=== PATIENT | female | born 1975 | race Caucasian/White ===

== ENCOUNTER 2017-06-08 13:06 | Emergency (ER) | payer SELFPAY ==
[2017-06-08 13:06] VITALS: BMI 31.3
[2017-06-08 13:20] VITALS: TEMP 97.9; O2SAT 100
[2017-06-08 13:21] VITALS: RESP 18
--- NOTE | 2017-06-08 13:52 | ED PDOC ---
Arrival/HPI - General Chief Complaint: Headache Time Seen by Provider: 06/08/17 13:37 Historian: Patient - History of Present Illness Narrative History of Present Illness (Text): 06/08/17 13:47 A 42 year old female, whose past medical history includes intermittent headaches and associated dizziness, presents to the emergency department complaining of dizziness and headaches. Patient reports when standing for about 10 minutes, she begins to experience dizziness as though the room is spinning. Notes also experiencing slight back-side neck pain and bi-temporal head pain. pt states pain is severe and longer lasting, OTC medications are not helping; pt was seen in the hospital 1-2 years ago for similar occurrence; pt states yesterday she felt very nauseous and when she vomited x 2 episodes, she decided to come to ED for further eval; pt denied fever/chills/sweats, no cp/sob/ palpitations, no abd pain, no numbness/tingling; no urinary/bowel changes, no rashes, no vision changes, no LOC, no fall/trauma/sick contact, no travel specialist denied other complaints. No PMD; Clinic patient 06/09/17 07:27 pt is right hand dominate Time/Duration: 24 hours (~ 1 day onset of dizziness/persistent headaches), Other (has had similiar symptoms almost every o) Symptom Onset: Sudden Symptom Course: Unchanged Quality: Tightness Severity Level: Severe Activities at Onset: Rest Context: Standing Past Medical History - Provider Review Nursing Documentation Reviewed: Yes - Travel History Have you recently traveled outside [place] w/in the past 3 mons?: No - Infectious Disease Hx of Infectious Diseases: None - Tetanus Immunization Tetanus Immunization: Unknown - Past Medical History Past Medical History: No Previous - Cardiac Hx Cardiac Disorders: Yes - Pulmonary Hx Respiratory Disorders: No - Neurological Hx Neurological Disorder: Yes Hx Headaches: Yes - HEENT Hx HEENT Disorder: No - Renal Hx Renal Disorder: No - Endocrine/Metabolic Hx Endocrine Disorders: No - Hematological/Oncological Hx Blood Disorders: No - Integumentary Hx Dermatological Disorder: No - Musculoskeletal/Rheumatological Hx Musculoskeletal Disorders: No - Gastrointestinal Hx Gastrointestinal Disorders: No - Genitourinary/Gynecological Hx Genitourinary Disorders: No - Psychiatric Hx Psychophysiologic Disorder: No Hx Substance Use: No - Past Surgical History Past Surgical History: No Previous - Anesthesia Hx Anesthesia: No - Suicidal Assessment Feels Threatened In Home Enviroment: No Family/Social History - Physician Review Nursing Documentation Reviewed: Yes Family/Social History: No Known Family HX (family hx: no persistent headaches; no sudden arrests; no early MT in family members) Smoking Status: Never Smoked Hx Alcohol Use: No Hx Substance Use: No Hx Substance Use Treatment: No Allergies/Home Meds Allergies/Adverse Reactions: Allergies No Known Allergies Allergy (Verified 06/08/17 13:14) Home Medications: Home Meds Medication Instructions Recorded Confirmed Ibuprofen [Motrin Tab] 600 mg PO Q6 06/08/17 06/08/17 Review of Systems - Physician Review All systems were reviewed & negative as marked: Yes - Review of Systems Constitutional: absent: Other (no head trauma) Eyes: Normal. absent: Vision Changes, Photophobia ENT: Normal Respiratory: Normal Cardiovascular: Normal Gastrointestinal: absent: Nausea, Vomiting Genitourinary Female: Normal Musculoskeletal: Neck Pain (slight back-side neck pain) Skin: Normal Neurological: Headache, Dizziness (room spinning sensation). absent: Other ( numbness/weakness to extremities) Endocrine: Normal Hemo/Lymphatic: Normal Psychiatric: Normal Physical Exam Vital Signs Reviewed: Yes Vital Signs Temp Pulse Resp BP Pulse Ox 06/08/17 14:10 62 18 139/77 100 06/08/17 13:21 97.9 F 59 L 18 133/83 100 06/08/17 13:14 97.9 F 59 L 16 133/83 100 Temperature: Afebrile Blood Pressure: Normal Pulse: Regular Respiratory Rate: Normal Appearance: Positive for: Well-Appearing, Other (uncomfortable, sitting in bed, alert/awake, GCS = 15, oriented x 3, cooperative, NAD) Pain Distress: None Mental Status: Positive for: Alert and Oriented X 3 - Systems Exam Head: Present: Atraumatic, Normocephalic Pupils: Present: PERRL, Other (no nystagmus, no photophobia, sclera anicteric, visual field intact b/l) Extroacular Muscles: Present: EOMI Conjunctiva: Present: Normal Ears: Present: Normal Mouth: Present: Moist Mucous Membranes, Normal Teeth Pharnyx: Present: Normal Nose (External): Present: Atraumatic Neck: Present: Normal Range of Motion, Trachea Midline, Other (no step off, no gross deformities noted, no nuchal rigidity). No: MIDLINE TENDERNESS Respiratory/Chest: Present: Clear to Auscultation, Good Air Exchange. No: Respiratory Distress, Accessory Muscle Use Cardiovascular: Present: Regular Rate and Rhythm, Normal S1, S2. No: Murmurs Abdomen: Present: Normal Bowel Sounds. No: Tenderness, Distention, Peritoneal Signs Back: Present: Normal Inspection. No: Midline Tenderness Upper Extremity: Present: Normal Inspection, Normal ROM, NORMAL PULSES, Neurovascularly Intact, Capillary Refill < 2s. No: Cyanosis, Edema Lower Extremity: Present: Normal Inspection, NORMAL PULSES, Normal ROM, Neurovascularly Intact, Capillary Refill < 2 s, Other (+ ambulatory, neurovasc intact b/l, strength 5/5 grossly intact in all limbs). No: Edema Neurological: Present: GCS=15, CN II-XII Intact, Speech Normal, Normal Sensory Function, Normal Cerebellar Funct, Other (no slurr speech; NIH stroke scale ~ 0) Skin: Present: Warm, Dry, Normal Color, Other (cap refill < 1sec, no ulcerations , no petechiae, no rashes). No: Rashes Psychiatric: Present: Alert, Oriented x 3, Normal Insight, Normal Concentration Medical Decision Making ED Course and Treatment: 06/08/17 13:50 Impression: 42 year old female with dizziness and headaches. Plan: -- EKG -- Head CT -- Labs -- Urinalysis -- Toradol -- Antivert -- Reglan -- Reassess and disposition Prior Visits: Notes and results from previous visits were reviewed. Patient was last seen in the emergency department on 11/01/2015 for dizziness. Patient was d/c home. Progress Notes: 06/08/2017 14:[address] IMPRESSION: No acute intracranial hemorrhage. Dictator: Jon Russell DO 06/08/17 19:15 pt felt much improved pt states dizziness/headaches are improved repeate NIH stroke scale evaluation: 0 pt is made aware of her medical results pt is encouraged fluids pt will f/u as directed pt will be discharged home Re-evaluation Time: 15:28 Reassessment Condition: Improved - Lab Interpretations Lab Results: 06/08/17 14:00 06/08/17 14:00 Lab Results 06/08/17 14:00: Sodium 140, Potassium 3.9, Chloride 106, Carbon Dioxide 23, Anion Gap 16, BUN 9, Creatinine 0.6 L, Est GFR ( Amer) > 60, Est GFR (Non -Af Amer) > 60, Random Glucose 91, Calcium 9.5, Total Bilirubin 0.8, AST 25, ALT 36, Alkaline Phosphatase 88, Total Protein 8.0, Albumin 4.3, Globulin 3.7, Albumin/Globulin Ratio 1.2 06/08/17 14:00: WBC 4.1 L D, RBC 4.37, Hgb 12.7, Hct 38.4, MCV 87.9, MCH 29.1, MCHC 33.1, RDW 13.5, Plt Count 174, MPV 11.4 H, Gran % 56.9, Lymph % (Auto) 30.0 , [place] % (Auto) 8.7 H, Eos % (Auto) 3.9, Baso % (Auto) 0.5, Gran # 2.36, Lymph # 1.2, [place] # 0.4, Eos # 0.2, Baso # 0.02 WNL I have reviewed the lab results: Yes Interpretation: All labs normal - RAD Interpretation Radiology Orders: 06/08/17 13:50 HEAD W/O CONTRAST [CT] Stat HISTORY: headache, dizziness COMPARISON: Comparison made with CT scan of the brain dated 05/20/2016. TECHNIQUE: Axial computed tomography images were obtained through the head/brain without intravenous contrast. Radiation dose: Total exam DLP = 819.24 mGy-cm. This CT exam was performed using one or more of the following dose reduction techniques: Automated exposure control, adjustment of the mA and/or kV according to patient size, and/or use of iterative reconstruction technique. FINDINGS: HEMORRHAGE: No intracranial hemorrhage. BRAIN: No mass effect or edema. No atrophy or chronic microvascular ischemic changes. VENTRICLES: Unremarkable. No hydrocephalus. CALVARIUM: Unremarkable. PARANASAL SINUSES: Unremarkable as visualized. No significant inflammatory changes. MASTOID AIR CELLS: Unremarkable as visualized. No inflammatory changes. OTHER FINDINGS: None. IMPRESSION: No acute intracranial hemorrhage. Car Shifter: Radiologist - EKG Interpretation EKG Interpretation (Text): 06/08/17 15:28 NSR at 60 bpm, normal axis, no ectopy, inverted T in leads V1-2, no st changes, BORDERLINE EKG; no gross changes compare with old ekg 10/201506/08/17 15:29 Interpreted by ED Physician: Yes Type: 12 lead EKG Comparison: Similar to previous EKG - Medication Orders Current Medication Orders: Discontinued Medications Ketorolac Tromethamine (Toradol) 30 mg IVP STAT STA Stop: 06/08/17 13:52 Last Admin: 06/08/17 14:01 Dose: 30 mg MAR Pain Assessment Document 06/08/17 14:01 TA (Rec: 06/08/17 14:02 TA [id number]) Pain Reassessment Is this a pain reassessment? No Sleep Is patient sleeping during reassessment? 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 Description Description Throbbing Intensity of Pain at present 5 Acceptable Level of Pain 0 IVP Administration Document 06/08/17 14:01 TA (Rec: 06/08/17 14:02 TA [id number]) Charges for Administration # of IVP Administrations 1 Meclizine HCl (Antivert) 50 mg PO STAT STA Stop: 06/08/17 13:50 Last Admin: 06/08/17 14:01 Dose: 50 mg Metoclopramide HCl (Reglan) 10 mg IVP STAT STA Stop: 06/08/17 13:50 Last Admin: 06/08/17 14:02 Dose: 10 mg IVP Administration Document 06/08/17 14:02 TA (Rec: 06/08/17 14:02 TA [id number]) Charges for Administration # of IVP Administrations 1 - Scribe Statement The provider has reviewed the documentation as recorded by the Serena Sears Provider Scribe Attestation: All medical record entries made by the Kellyibrosalinda were at my direction and personally dictated by me. I have reviewed the chart and agree that the record accurately reflects my personal performance of the history, physical exam, medical decision making, and the department course for this patient. I have also personally directed, reviewed, and agree with the discharge instructions and disposition. Disposition/Present on Arrival - Present on Arrival Any Indicators Present on Arrival: No History of DVT/PE: No History of Uncontrolled Diabetes: No Urinary Catheter: No History of Decub. Ulcer: No History Surgical Site Infection Following: None - Disposition Have Diagnosis and Disposition been Completed?: Yes Diagnosis: Dizziness, Headache Disposition: HOME/ ROUTINE Disposition Time: 15:32 Patient Plan: Discharge Condition: STABLE Discharge Instructions (ExitCare): Acute Headache (ED), Dizziness (ED) Print Language: INDIAN Additional Instructions: Make sure to see your doctor in 1-2 days DRINK PLENTY OF FLUIDS take your medications as prescribed RETURN TO ED IF worse pain, cant breath, persistent vomiting, high fever >101- 102 for hours, altered behavior, unable to urinate, heavy/persistent bleeding, passing out, chest pain, or other medical emergencies Prescriptions: Ibuprofen [Motrin] 400 mg PO QID #30 tab Meclizine [Meclizine*] 25 mg PO Q6 #30 tab Metoclopramide HCl [Reglan] 10 mg PO TID #20 tablet Referrals: Rod Mcintyre MD [Staff Provider] - Follow up with primary Forms: [employer] (Luxembourger)
[2017-06-08 14:11] VITALS: BP 139/77; PULSE 62
[2017-06-08 14:26] LABS: ALB/GLOB RATIO 1.2 (1.1-1.8); ALBUMIN 4.3 g/dL (3.0-4.8); ALT/SGPT 36 U/L (7-56); AST/SGOT 25 U/L (14-36); BLOOD UREA NITROGEN 9 mg/dL (7-21); CALCIUM 9.5 mg/dL (8.4-10.5); GFR AFRICAN-AMERICAN > 60; GFR NON-AFRICAN AMERICAN > 60
[2017-06-08 14:32] LABS: BASO # 0.02 K/mm3 (0.0-2.0); BASO % 0.5 % (0.0-3.0); EOS # 0.2 (0.0-0.7); EOS % 3.9 % (1.5-5.0); GRAN # 2.36 (1.4-6.5); GRAN % 56.9 % (50.0-68.0); HEMOGLOBIN 12.7 g/dL (12.0-16.0); LYMPH # 1.2 (1.2-3.4); MEAN CELL VOLUME 87.9 fl (80.0-105.0); MEAN CORPUSCULAR HEMOGLOBIN 29.1 pg (25.0-35.0); MEAN CORPUSCULAR HGB CONC 33.1 g/dl (31.0-37.0); MEAN PLATELET VOLUME 11.4 fl (7.0-11.0); MONO # 0.4 (0.1-0.6); MONO % 8.7 % (1.0-6.0); RBC 4.37 10^6/uL (3.5-6.1); RED CELL DISTRIBUTION WIDTH 13.5 % (11.5-14.5); WHITE BLOOD COUNT 4.1 10^3/ul (4.5-11.0)
--- NOTE | 2017-06-08 14:58 | CT ---
PROCEDURE: CT HEAD WITHOUT CONTRAST. HISTORY: headache, dizziness COMPARISON: Comparison made with CT scan of the brain dated 05/20/2016. TECHNIQUE: Axial computed tomography images were obtained through the head/brain without intravenous contrast. Radiation dose: Total exam DLP = 819.24 mGy-cm. This CT exam was performed using one or more of the following dose reduction techniques: Automated exposure control, adjustment of the mA and/or kV according to patient size, and/or use of iterative reconstruction technique. FINDINGS: HEMORRHAGE: No intracranial hemorrhage. BRAIN: No mass effect or edema. No atrophy or chronic microvascular ischemic changes. VENTRICLES: Unremarkable. No hydrocephalus. CALVARIUM: Unremarkable. PARANASAL SINUSES: Unremarkable as visualized. No significant inflammatory changes. MASTOID AIR CELLS: Unremarkable as visualized. No inflammatory changes. OTHER FINDINGS: None. IMPRESSION: No acute intracranial hemorrhage.
--- NOTE | 2017-06-09 09:54 | CARD ---
APPROVED REPORT EKG Measurement Heart [id number] <Conclusion> Normal sinus rhythm Low voltage QRS Borderline ECG
== END 2017-06-08 15:41 | disposition home or self-care (01) ==
LOC: ED 13:06
DX: R51 Headache (principal); R42 Dizziness and giddiness
CPT/HCPCS: 70450; 80053; 85025; 93005; 96374; 96375; 99285; J1885; J2765

== ENCOUNTER 2017-12-29 12:23 | Emergency (ER) | payer SELFPAY ==
[2017-12-29 12:32] VITALS: BMI 32.7
--- NOTE | 2017-12-29 13:05 | ED PDOC ---
Arrival/HPI - General Historian: Patient, Partner - History of Present Illness Time/Duration: 4-6 hours Symptom Course: Intermittent Severity Level: 4 - General Chief Complaint: Dizziness/Lightheaded Time Seen by Provider: 12/29/17 12:29 - History of Present Illness Narrative History of Present Illness (Text): 12/29/17 12:58 Patient is a 42 year old female with no significant past medical history who presents to the ED for dizziness x 1 week. Patient states that the dizziness has been intermittent. Reports that she feels like the room is spinning. States that she took Meclizine with no relief in symptoms. Patient was seen in the ER for dizziness and Patient was referred to see Neurologist. Her PMD referred her to see ENT for the same complaint however she has not followed up. States that they cannot afford to see the specialist. She also reports having daily bitemporal headaches for which she takes ibuprofen for. Admits to having left sided ear pain. Denies headaches, nausea/vomiting, cp, palpitations, sob, abdominal pain, urinary symptoms. (Effie Hubbard) Past Medical History - Provider Review Nursing Documentation Reviewed: Yes - Past History Past History: No Previous - Infectious Disease Hx of Infectious Diseases: None - Tetanus Immunization Tetanus Immunization: Unknown - Past Medical History Past Medical History: No Previous - Cardiac Hx Cardiac Disorders: Yes - Pulmonary Hx Respiratory Disorders: No - Neurological Hx Neurological Disorder: Yes Hx Headaches: Yes Hx Vertigo: Yes - HEENT Hx HEENT Disorder: No - Renal Hx Renal Disorder: No - Endocrine/Metabolic Hx Endocrine Disorders: No - Hematological/Oncological Hx Blood Disorders: No Other/Comment: Vitamin D deficiency - Integumentary Hx Dermatological Disorder: No - Musculoskeletal/Rheumatological Hx Musculoskeletal Disorders: No - Gastrointestinal Hx Gastrointestinal Disorders: No - Genitourinary/Gynecological Hx Genitourinary Disorders: No - Psychiatric Hx Psychophysiologic Disorder: No Hx Substance Use: No - Past Surgical History Past Surgical History: No Previous - Anesthesia Hx Anesthesia: No - Suicidal Assessment Feels Threatened In Home Enviroment: No Family/Social History - Physician Review Nursing Documentation Reviewed: Yes Family/Social History: No Known Family HX Smoking Status: Never Smoked Hx Alcohol Use: No Hx Substance Use: No Hx Substance Use Treatment: No Allergies/Home Meds Allergies/Adverse Reactions: Allergies No Known Allergies Allergy (Verified 06/08/17 13:14) Review of Systems - Review of Systems Constitutional: absent: Fatigue, Fevers Eyes: absent: Vision Changes ENT: absent: Hearing Changes Respiratory: absent: SOB, Cough Cardiovascular: absent: Chest Pain, Palpitations Gastrointestinal: Normal. absent: Abdominal Pain, Constipation, Diarrhea, Nausea, Vomiting Genitourinary Female: absent: Dysuria, Hematuria Musculoskeletal: absent: Back Pain Skin: absent: Rash Neurological: Headache, Dizziness. absent: Focal Weakness, Speech Changes Physical Exam Vital Signs Reviewed: Yes Temperature: Afebrile Blood Pressure: Normal Pulse: Regular Respiratory Rate: Normal Appearance: Positive for: Well-Appearing, Non-Toxic Pain Distress: None Mental Status: Positive for: Alert and Oriented X 3 - Systems Exam Head: Present: Atraumatic, Normocephalic Pupils: Present: PERRL Extroacular Muscles: Present: EOMI Conjunctiva: Present: Normal Ears: Present: NORMAL TM, Other (Left TM not visualized 2/2 to ear wax) Mouth: Present: Moist Mucous Membranes Pharnyx: Present: Normal Neck: Present: Normal Range of Motion Respiratory/Chest: Present: Clear to Auscultation. No: Respiratory Distress, Accessory Muscle Use Cardiovascular: Present: Regular Rate and Rhythm, Normal S1, S2 Abdomen: Present: Normal Bowel Sounds. No: Tenderness Upper Extremity: Present: Normal Inspection Lower Extremity: Present: Normal Inspection Neurological: Present: CN II-XII Intact, Normal Sensory Function, Normal Cerebellar Funct Skin: Present: Warm, Dry, Normal Color Psychiatric: Present: Alert, Oriented x 3, Normal Insight Vital Signs Temp Pulse Resp BP Pulse Ox 12/29/17 14:24 98 F 69 16 111/70 98 12/29/17 12:33 98.6 F 87 18 147/74 99 Medical Decision Making Re-evaluation Time: 14:10 Reassessment Condition: Improved ED Course and Treatment: 12/29/17 13:30 Patient is a 42 year old female who presented for intermittent dizziness x 1 week. -Meclizine 50mg -Reglan 10mg IVP 12/29/17 14:10 Patient re-evaluated. States that dizziness has improved. Will give referral to follow up with ENT. (Effie Hubbard) Seen and examined with resident. 42 y/o F p/w vertigo made worse by head movement, intermittent, associated with nausea. On exam, no focal deficit. (Cameron Reddy) - Medication Orders Current Medication Orders: Discontinued Medications Meclizine HCl (Antivert) 50 mg PO STAT STA Stop: 12/29/17 13:23 Last Admin: 12/29/17 13:33 Dose: 50 mg Metoclopramide HCl (Reglan) 10 mg IVP STAT STA Stop: 12/29/17 13:24 Last Admin: 12/29/17 13:35 Dose: 10 mg IVP Administration Document 12/29/17 13:35 SRE (Rec: 12/29/17 13:35 SRE [id number]) Charges for Administration # of IVP Administrations 1 Disposition/Present on Arrival - Present on Arrival Any Indicators Present on Arrival: No History of DVT/PE: No History of Uncontrolled Diabetes: No Urinary Catheter: No History of Decub. Ulcer: No History Surgical Site Infection Following: None - Disposition Have Diagnosis and Disposition been Completed?: Yes Disposition Time: 14:15 Patient Plan: Discharge - Disposition Diagnosis: Vertigo, Dizziness Disposition: HOME/ ROUTINE Condition: STABLE Discharge Instructions (ExitCare): Vertigo (a Type of Dizziness) Prescriptions: Meclizine [Antivert] 25 mg PO Q8 PRN #42 tab PRN Reason: Dizziness Referrals: [facility] [Outside] - Follow up with primary Alexi Wen DO [Staff Provider] - Follow up with primary Forms: [email or web address] (Romanian)
[2017-12-29 14:30] VITALS: BP 111/70; PULSE 69; RESP 16; TEMP 98; O2SAT 98
--- NOTE | 2017-12-29 18:00 | CARD ---
APPROVED REPORT Date of service: 12/29/2017 EKG Measurement Heart [id number] <Conclusion> Normal sinus rhythm Normal ECG
== END 2017-12-29 14:24 | disposition home or self-care (01) ==
LOC: ED 12:23
DX: R42 Dizziness and giddiness (principal)
CPT/HCPCS: 93005; 96374; 99285; J2765

== ENCOUNTER 2018-07-10 09:25 | Outpatient (CLI) | payer OTHER | END 2018-07-10 09:26 | disposition home or self-care (01) | LOC: LAB 09:25 ==

== ENCOUNTER 2018-10-09 08:49 | Outpatient (CLI) | payer OTHER | END 2018-10-09 08:50 | disposition home or self-care (01) | LOC: LAB 08:49 ==

== ENCOUNTER 2018-10-10 09:12 | Emergency (ER) | payer OTHER ==
[2018-10-10 09:12] VITALS: BMI 32.7
--- NOTE | 2018-10-10 09:37 | ED PDOC ---
Arrival/HPI - General Chief Complaint: ENT Problem Time Seen by Provider: 10/10/18 09:32 Historian: Patient - History of Present Illness Narrative History of Present Illness (Text): 10/10/18 09:40 43 y/o female with PMH of HLD and vertigo presents to the ED c/o fever x 1 day. Beginning yesterday, patient developed sore throat worse when swallowing, cough productive of yellow sputum, and headache. Headache is mild, dull, frontal. She has been taking 400mg ibuprofen with mild relief, last this morning at 6am. No recent travel, sick contacts, or antibiotic use. Denies SOB, chest pain, abdominal pain, nausea, vomiting, diarrhea, drooling, back pain, neck pain/stiffness, dizziness, vision changes, photophobia, urinary symptoms, ear pain, or any other associated symptoms. Past Medical History - Provider Review Nursing Documentation Reviewed: Yes - Past History Past History: No Previous - Infectious Disease Hx of Infectious Diseases: None - Tetanus Immunization Tetanus Immunization: Unknown - Reproductive Menopause: No - Past Medical History Past Medical History: No Previous - Cardiac Hx Cardiac Disorders: Yes - Pulmonary Hx Respiratory Disorders: No - Neurological Hx Neurological Disorder: Yes Hx Headaches: Yes Hx Vertigo: Yes - HEENT Hx HEENT Disorder: No - Renal Hx Renal Disorder: No - Endocrine/Metabolic Hx Endocrine Disorders: No - Hematological/Oncological Hx Blood Disorders: No Other/Comment: Vitamin D deficiency - Integumentary Hx Dermatological Disorder: No - Musculoskeletal/Rheumatological Hx Musculoskeletal Disorders: No - Gastrointestinal Hx Gastrointestinal Disorders: No - Genitourinary/Gynecological Hx Genitourinary Disorders: No - Psychiatric Hx Psychophysiologic Disorder: No Hx Substance Use: No - Past Surgical History Past Surgical History: No Previous - Anesthesia Hx Anesthesia: No - Suicidal Assessment Feels Threatened In Home Enviroment: No Family/Social History - Physician Review Nursing Documentation Reviewed: Yes Family/Social History: No Known Family HX Smoking Status: Never Smoked Hx Alcohol Use: No Hx Substance Use: No Hx Substance Use Treatment: No Allergies/Home Meds Allergies/Adverse Reactions: Allergies No Known Allergies Allergy (Verified 06/08/17 13:14) Home Medications: Home Meds Medication Instructions Recorded Confirmed Aspirin [Ecotrin] 325 mg PO DAILY 10/10/18 10/10/18 Atorvastatin [Lipitor] 40 mg PO DAILY 10/10/18 10/10/18 Cholecalciferol [Vitamin D] 0 iu PO 10/10/18 Review of Systems - Physician Review All systems were reviewed & negative as marked: Yes - Review of Systems Constitutional: Fevers Eyes: Normal. absent: Vision Changes, Photophobia ENT: Sore Throat, Sinus Congestion Respiratory: Cough, Sputum. absent: SOB Cardiovascular: Normal. absent: Chest Pain, Palpitations, Syncope Gastrointestinal: Normal. absent: Abdominal Pain, Stool Changes, Constipation, Diarrhea, Nausea, Vomiting, Appetite Changes Genitourinary Female: Normal Musculoskeletal: Normal. absent: Back Pain, Neck Pain Skin: Normal. absent: Rash Neurological: Headache. absent: Dizziness, Focal Weakness, Gait Changes, Disequilibrium Hemo/Lymphatic: Adenopathy Physical Exam Vital Signs Reviewed: Yes Vital Signs Temp Pulse Resp BP Pulse Ox 10/10/18 09:24 101.1 F H 110 H 18 120/80 99 Temperature: Febrile Blood Pressure: Normal Pulse: Tachycardic Respiratory Rate: Normal Appearance: Positive for: Well-Appearing, Non-Toxic, Comfortable Pain Distress: None Mental Status: Positive for: Alert and Oriented X 3 - Systems Exam Head: Present: Atraumatic, Normocephalic Pupils: Present: PERRL Extroacular Muscles: Present: EOMI Conjunctiva: Present: Normal Ears: Present: Normal, NORMAL TM, Normal Canal Mouth: Present: Moist Mucous Membranes, Normal Lips, Normal Tounge. No: Drooling, Trismus Pharnyx: Present: ERYTHEMA (mild posterior pharynx and bilateral tonsils), TONSILS ENLARGED (bilaterally). No: EXUDATE, Uvular Deviation, Muffled/Hoarse Voice, Strider, Other (no drooling or tripoding) Neck: Present: Normal Range of Motion. No: Meningeal Signs Respiratory/Chest: Present: Clear to Auscultation, Good Air Exchange. No: Respiratory Distress, Accessory Muscle Use Cardiovascular: Present: Regular Rate and Rhythm, Normal S1, S2, Peripheal Pulses Present Abdomen: Present: Normal Bowel Sounds. No: Tenderness, Distention, Peritoneal Signs, Rebound, Guarding Back: Present: Normal Inspection. No: CVA Tenderness Upper Extremity: Present: Normal Inspection, Normal ROM, NORMAL PULSES, Neurovascularly Intact, Capillary Refill < 2s. No: Cyanosis, Edema, Temperature Abnormalties Lower Extremity: Present: Normal Inspection, NORMAL PULSES, Normal ROM, Neurovas cularly Intact, Capillary Refill < 2 s. No: Edema, Temperature Abnormalties Neurological: Present: GCS=15, CN II-XII Intact, Speech Normal, Motor Func Grossly Intact, Normal Sensory Function, Gait Normal Skin: Present: Warm, Dry, Normal Color. No: Rashes Psychiatric: Present: Alert, Oriented x 3, Normal Insight, Normal Concentration, Normal Affect, Normal Mood Medical Decision Making ED Course and Treatment: 10/10/18 09:45 Initial Plan: * Rapid strep * Rapid flu * CXR * Tylenol * PO Hydration * Reassess and Disposition 10:15 Rapid Strep POSITIVE. Pt with NKDA, will treat with 10 days of amoxicillin. Rapid Flu negative UA shows small blood and leuk esterase. Pt asymptomatic, will culture CXR shows no active disease as read by me. Patients vitals have improved since triage. Advised tylenol and ibuprofen at home for fever and ENT/PMD followup. Instructed on correct antibiotic use. Diagnostic testing results and plan of care discussed with patient. Strict instructions given regarding prescription use, importance of followup, and signs/symptoms to return to ER including drooling, SOB, chest pain, abdominal pain, or any other new/worsening symptoms. Pt verbalized understanding of discussion. Patient is A&Ox3, ambulating with steady gait, with vital signs stable for discharge. - Lab Interpretations Lab Results: Lab Results 10/10/18 09:45: Urine Color Yellow, Urine Appearance Clear, Urine pH 7.0, Ur Specific Farson 1.015, Urine Protein Negative, Urine Glucose (UA) Negative, Urine Ketones Negative, Urine Blood Small H, Urine Nitrate Negative, Urine Bilirubin Negative, Urine Urobilinogen 0.2, Ur Leukocyte Esterase Small H, Urine RBC 10 - 15 H, Urine WBC 15 - 20 H, Ur Epithelial Cells 4 - 5, Urine Bacteria Many 10/10/18 09:45: Influenza Typ A,B (EIA) Negative for flu a/b, Grp A Beta Strep Ag Positive H I have reviewed the lab results: Yes Disposition/Present on Arrival - Present on Arrival Any Indicators Present on Arrival: No History of DVT/PE: No History of Uncontrolled Diabetes: No Urinary Catheter: No History of Decub. Ulcer: No History Surgical Site Infection Following: None - Disposition Have Diagnosis and Disposition been Completed?: Yes Diagnosis: Strep pharyngitis Disposition: HOME/ ROUTINE Disposition Time: 10:30 Patient Plan: Discharge Patient Problems: Current Active Problems Problem Status Onset Strep pharyngitis Acute Condition: IMPROVED Discharge Instructions (ExitCare): Strep Throat (DC) Additional Instructions: Amoxicillin every 12 hours for 10 days Cepacol as directed Ibuprofen every 6 hours for fever Tylenol every 4 hours for fever Increase fluids Rest, no strenuous activities Followup with primary doctor within 2 days Followup with ENT within 2 days Return to ER with any new/worsening symptoms Prescriptions: Amoxicillin [Amoxil 500 mg Cap] 500 mg PO Q12H #20 cap Benzocaine/Menthol [Cepacol Sore Throat] 1 ramirez MM Q4 #12 ramirez Referrals: Zach Novoa DO [Staff Provider] - Follow up with primary Luz Easton MD [Family Provider] - Follow up with primary [facility] [place] - Follow up with primary Forms: [facility] (Swedish), WORK NOTE
[2018-10-10 09:56] LABS: URINE BILIRUBIN NEGATIVE (NEGATIVE); URINE BLOOD SMALL (NEGATIVE); URINE GLUCOSE (UA) NEGATIVE (NEGATIVE); URINE LEUKOCYTE ESTERASE SMALL Leu/uL (NEGATIVE); URINE PROTEIN NEGATIVE mg/dL (<30 mg/dL); URINE UROBILINOGEN 0.2 E.U./dL (<1 E.U./dL)
[2018-10-10 09:59] LABS: URINE APPEARANCE CLEAR (CLEAR); URINE COLOR YELLOW (YELLOW)
[2018-10-10 10:08] LABS: INFLUENZA A B NEGATIVE FOR FLU A/B (NEGATIVE)
[2018-10-10 10:12] LABS: URINE WBC 15 - 20 /hpf (0-6)
[2018-10-10 10:13] LABS: URINE BACTERIA MANY /hpf
[2018-10-10 10:39] VITALS: BP 137/81; PULSE 92; RESP 19; TEMP 97.9; O2SAT 97
--- NOTE | 2018-10-10 11:45 | RAD ---
Date of service: 10/10/2018 HISTORY: Cough and fever. COMPARISON: 12/03/2017 TECHNIQUE: Chest PA and lateral views FINDINGS: LUNGS: No active pulmonary disease. PLEURA: No significant pleural effusion identified. No pneumothorax apparent. CARDIOVASCULAR: No aortic atherosclerotic calcification present. Normal cardiac size. No pulmonary vascular congestion. OSSEOUS STRUCTURES: No significant abnormalities. VISUALIZED UPPER ABDOMEN: Normal. OTHER FINDINGS: None. IMPRESSION: No active pulmonary disease. No significant interval change compared to the prior examination(s).
== END 2018-10-10 10:50 | disposition home or self-care (01) ==
LOC: ED 09:12
DX: J02.0 Streptococcal pharyngitis (principal); E78.5 Hyperlipidemia, unspecified